=== PATIENT | female | born 1950 | race Caucasian/White ===

== ENCOUNTER 2016-12-07 17:53 | Inpatient (IN) | payer MEDICARE, BC ==
[~2016-12-07] VITALS: Ht 157.5 cm; Wt 55.9 kg
--- NOTE | ~2016-12-07 | CON ---
PATIENT'S NAME: MACEY CARPIO [facility] AGE: 66 Y [address] ROOM: [address] [address] LOCATION: GPCU ADMIT DATE: 12/07/2016 Consultation DISCHARGE DATE: FAMILY PHYSICIAN: Tanvi Freeman MD ATTENDING PHYSICIAN: Tanvi Freeman DATE OF CONSULTATION: 12/12/2016 REFERRING PHYSICIAN: Shawn Vera MD PRIMARY PHYSICIAN: Tanvi Freeman MD HISTORY OF PRESENT ILLNESS: The patient is a 66-year-old female, who has been not feeling well for the past month. She has been having a headache, running low-grade fevers, mild nausea since the beginning of November. She eventually did go in to see Dr. Freeman on 12/08, and routine evaluation did not find any abnormalities on 12/07. On 12/08, the patient went to the emergency room because of lethargy, weakness, nausea, decreased p.o. intake. In the emergency room, she was found to have a calcium of greater than 15, BUN of 32, creatinine of 1.7. Sodium 138, potassium was 3.4, globulin was elevated at 5.2, alkaline phosphatase is normal at 77. AST mildly elevated at 117. ALT mildly elevated at 97. Amylase elevated at 196 and lipase was 2060. CRP was mildly elevated at 5, TSH 1.9. Pro-BMP was 550. The patient was admitted to the hospital for acute pancreatitis. She was given IV hydration for her hypercalcemia. On 12/08, they did check ionized calcium and it was 8.66. With her serum calcium was 14.2 in the morning and later in the afternoon, it was 13.6. With continued IV hydration on 12/10, her calcium came down to 10.7, however, she was having increasing problems with shortness of breath and fluid retention, and the IV fluids were stopped. On 12/10, at 3 p.m., her calcium was up at 11.9, and on 12/11, it was up at 13.7, and IV hydration was started again. This morning, on 12/12, her calcium level was down to 12.2. The patient says that she has been feeling much better since she has been in. She did have approximately about a 10-pound weight loss in the past month. She was recently started on methotrexate and folic acid approximately six weeks ago for rheumatoid arthritis mainly on her MCP joint on her left hand. Her last dose of that was on November 26. Her poultry farm worker told her to hold her most the dose that was due on the 03 of December. Prior to that, she was on Plaquenil for approximately one year for her rheumatoid arthritis. She said that her rheumatoid arthritis main side symptom is swelling in her MCP joints bilaterally, but mainly on the left. On the day of admission, the patient said her temperature was up to 102. PATIENT'S NAME: MACEY CARPIO [facility] AGE: 66 Y [address] ROOM: [place] [address] LOCATION: GPCU ADMIT DATE: 12/07/2016 Consultation DISCHARGE DATE: FAMILY PHYSICIAN: Tanvi Freeman MD ATTENDING PHYSICIAN: Tanvi Freeman PAST MEDICAL HISTORY: Rheumatoid arthritis and she did have some leg pains likely just from work positioning and she is on gabapentin for that. MEDICATIONS: 1. Tylenol. 2. Singulair. 3. Estrogen. 4. Biotin. 5. Vitamin D 2000 international units a day. 6. Jovita. 7. Flonase. 8. Gabapentin 300 mg at bedtime. SOCIAL HISTORY: The patient is . [place] outside of town. She manages [employer]. She has one daughter, who lives in [place]. She drinks very occasionally. She is a nonsmoker. FAMILY HISTORY: Noncontributory. REVIEW OF SYSTEMS: As per HPI except she was having little problems with some constipation and her appetite has been fairly poor, but is a little bit better since she has been in the hospital. Otherwise, her 12-point review of systems is unremarkable. PHYSICAL EXAMINATION: VITAL SIGNS: Temperature is 98.2, pulse is 106, respirations 18, blood pressure is 117/73, sats 93% on room air. Her height is 5 feet and 2 inches, weight is 122 pounds. GENERAL: The patient is a very pleasant, alert, oriented female, who is in no distress. HEENT: No scleral icterus present. Extraocular muscles appear to be intact. Pupils appear to be equal. NECK: Supple without adenopathy or mass. Trachea is in the midline. HEART: Regular without murmur, S3, or S4. LUNGS: She has fine crackles bibasilar, but otherwise are clear. ABDOMEN: Bowel sounds are present, soft, and nontender. No organomegaly, masses, or tenderness are palpable. EXTREMITIES: She has no inguinal adenopathy or peripheral edema. SKIN: Shows no skin rash, petechia, or ecchymosis. MUSCULOSKELETAL: She does have a little bit of joint deformity in her MCP on her left hand, but is fairly mild, otherwise no significant joint PATIENT'S NAME: MACEY CARPIO [facility] AGE: 66 Y [address] ROOM: [place] [address] LOCATION: GPCU ADMIT DATE: 12/07/2016 Consultation DISCHARGE DATE: FAMILY PHYSICIAN: Tanvi Freeman MD ATTENDING PHYSICIAN: Tanvi Freeman. X-RAYS: CT of her sinuses was relatively unremarkable. May be question of sinusitis, but there were no fluid levels in her sinuses. CT of her abdomen showed mild pancreatitis and some ground-glass appearance in her bibasilar lungs. OTHER LABS: On 12/07, her BUN was 32 and her creatinine was 1.7 and today, her BUN was 24 and creatinine was 1.6. Calcium back up to 12.2, globulin was back up at 5.1, with an albumin of 2.6. Liver tests were normal. Amylase is still elevated at 106 and lipase is still elevated at 954. IMPRESSION: 1. Hypercalcemia with a normal PTH on 12/08 and a normal vitamin D25-OH. 2. Mild pancreatitis likely secondary to hypercalcemia. 3. Rheumatoid arthritis, seems to be fairly mild and recent on diagnosis. RECOMMENDATIONS: I talked with the patient and her daughter and her about the differential diagnosis of hypercalcemia, malignancy, sarcoidosis, vitamin D intoxication can all increase the calcium, however, this seems to be a fairly recent rapid onset of hypercalcemia. There is no evidence of sarcoid on CT scan or no evidence of other malignancies such as renal cell cancer on her CT scan. Pheochromocytoma is in the differential, however, so is multiple myeloma. With her total globulin elevated, that is a suggestion she could have multiple myeloma. I am waiting for serum protein electrophoresis to come back. We will go ahead and add quantitative immunoglobulins, serum free light chains, as well as beta- 2 microglobulin. We will check ionized calcium from this morning's lab. We will give her Zometa 4 mg IV today and see if that brings her calcium down. Readily, I did talk with her about further evaluation as an outpatient. Some of these tests will likely take several days to come back. However, I did tell her that I think she should have a bone marrow biopsy just to exclude multiple myeloma even if her protein levels come back unremarkable. We can do that here in the hospital on Tuesday or we can do it as an outpatient some time this next week. PATIENT'S NAME: MACEY CARPIO [facility] AGE: 66 Y [address] ROOM: [place] [address] [facility] ADMIT DATE: 12/07/2016 Consultation DISCHARGE DATE: FAMILY PHYSICIAN: Tanvi Freeman MD ATTENDING PHYSICIAN: Tanvi Freeman MD CML/modl /[id number] d: t: 12/13/16 0849, CONSULTATION REPORT
--- NOTE | ~2016-12-07 | CON ---
PATIENT'S NAME: MACEY CARPIO [facility] AGE: 66 Y [address] ROOM: [place] [id number] LOCATION: GPCU ADMIT DATE: 12/07/2016 Consultation DISCHARGE DATE: FAMILY PHYSICIAN: Tanvi Freeman MD ATTENDING PHYSICIAN: Tanvi Freeman DATE OF CONSULTATION: 12/11/2016 REFERRING PHYSICIAN: Shawn Vera MD CHIEF COMPLAINT: General feeling of ill being as well as fatigue, tiredness. She also had high amylase and hypercalcemia. We have been consulted for hypercalcemia for acute pancreatitis. HISTORY OF PRESENT ILLNESS: The patient is a pleasant 66-year-old white female who states for the last almost a month, has not been feeling well. She feels tired and fatigued. She was also somewhat unstable. She was evaluated by her primary care provider. She was found to have hypercalcemia and her medications including methotrexate was discontinued by the opto mechanical engineer. She also has some other abnormal labs which are unclear. She was ultimately not feeling well and would get very easily fatigued and unable to walk even 20 steps. She then was finally brought into hospital. She was found to have severe hypercalcemia. In addition to this, she was also found to have high amylase and lipase levels; we have been consulted for that. The patient has a longstanding history of rheumatoid arthritis. This has been pretty well managed by her opto mechanical engineer with methotrexate. She takes it weekly. PAST MEDICAL HISTORY: ALLERGIES: ENVIRONMENT. CURRENT MEDICATIONS: Include, 1. Gabapentin. 2. Montelukast. 3. Estrogen. 4. Biotin. 5. Vitamin D3. 6. Jovita. 7. Flonase. 8. Methotrexate, recently stopped. PATIENT'S NAME: MACEY CARPIO [facility] AGE: 66 Y [address] ROOM: [address] [place], [place] [address] LOCATION: GPCU ADMIT DATE: 12/07/2016 Consultation DISCHARGE DATE: FAMILY PHYSICIAN: Tanvi Freeman MD ATTENDING PHYSICIAN: Tanvi Freeman SOCIAL HISTORY: She takes occasional alcohol and caffeine. No substance abuse. She is a former smoker. FAMILY HISTORY: Significant for mother with arthritis and hypertension. Father had myocardial infarction. PAST SURGICAL HISTORY: Negative. PAST MEDICAL HISTORY: Is only significant for rheumatoid arthritis. REVIEW OF SYSTEMS: A detailed 10-point review of system was done. Found to be negative other than what is mentioned in the history of present illness and past medical history. She does complain of mild shortness of breath. She has been having significant constitutional symptoms as above. PHYSICAL EXAMINATION: GENERAL: Today, she is alert and awake. Appears to be in acute distress. VITAL SIGNS: She is afebrile. Pulse in the 80s, respiratory rate 18, blood pressure 118/64 and O2 saturation of 94% on 1 liter nasal cannula. HEENT: Reveals no pallor, no icterus. Head, ENT, oral cavity are normal. Nasal passages are clear. NECK: Supple. No masses are felt. No thyromegaly is felt. CARDIOVASCULAR: S1 and S2. Peripheral pulses are palpable and normal. CHEST: Bilateral coarse creps. No wheezing. No rhonchi. ABDOMEN: Soft and nontender. I do not feel any masses. MUSCULOSKELETAL: There are minimal changes of rheumatoid arthritis. No acute changes are seen. NEUROLOGICAL: Grossly nonfocal. LABORATORY DATA: CT thorax was done that shows worsening ground-glass opacities throughout both lower lobes with lesser changes in the right middle lobe. Complete metabolic screen shows sodium 142, potassium 3.7, chloride is 106, bicarb is 29, calcium 13.7, BUN 18, creatinine 1.4 which is high, total bilirubin 0.4, ALT of 44, AST 33, alk phos of 60, amylase of 87, lipase of 564. WBCs 8.6, hemoglobin 10 and hematocrit 30.1, platelet count 305. She had an abdominal ultrasound done and that did not show any cholelithiasis. Mild common duct dilatation extending to the level of pancreas. CT of the PATIENT'S NAME: MACEY CARPIO [facility] AGE: 66 Y [address] ROOM: [place] [address] [facility] ADMIT DATE: 12/07/2016 Consultation DISCHARGE DATE: FAMILY PHYSICIAN: Tanvi Freeman MD ATTENDING PHYSICIAN: Tanvi Freeman abdomen was also done showed mild pancreatitis, no fluid collection. Blood cultures have been negative to date. IMPRESSION: The patient with a history of hypercalcemia. The etiology is not clear. I wonder if this is the cause of vitamin D toxicity. She has a mild pancreatitis which is painless. I wonder if this is related to hypercalcemia. I do not think any GI intervention is needed at this time. She has a minimally dilated common bile duct and that will have to be followed. However, she has normal LFTs. We will recommend advancing her diet and correction of hypercalcemia. She was discussed with Dr. Freeman. She is going to work her up with protein electrophoresis. The findings and the plan were discussed with the patient. All questions were answered. We will continue to follow this patient and provide any further input if needed. VALENTINEF MD RADHAMES PLEITEZ/esa /[id number] d: 12/11/161922 t: 12/12/16 1341, CONSULTATION REPORT
--- NOTE | ~2016-12-07 | HP ---
PATIENT'S NAME: MACEY CARPIO [facility] AGE: 66 Y [address] ROOM: [place] [address] LOCATION: [facility] ADMIT DATE: 12/07/2016 History & Physical DISCHARGE DATE: FAMILY PHYSICIAN: PHYSICIAN, UNKNOWN ATTENDING PHYSICIAN: Tanvi Freeman DATE OF SERVICE: CHIEF COMPLAINT: Pancreatitis, hypercalcemia, and headache. HISTORY OF PRESENT ILLNESS: The patient is a 66-year-old female whom the family brought into the emergency room today with about almost a month long history of headache and not feeling well. Has had vomiting a couple of times in the last couple of days and low- grade fevers. Her equilibrium has been off. Really has not had much for intake over the last 24 hours. Does complain of heartburn when eating. She does have known rheumatoid arthritis and does see Rheumatology. Around the 15th of the month, her methotrexate and folic acid were discontinued due to some abnormal labs that were done per Dr. Freeman, the patient is unaware of what labs are abnormal. PAST MEDICAL HISTORY: Significant for rheumatoid arthritis involving both hands and positive rheumatoid factor. PREVIOUS SURGERY HISTORY: Negative. CURRENT MEDICATIONS: 1. Tylenol p.r.n. 2. Singulair 10 mg daily. 3. Estrogen dose unknown. 4. Biotin 5000 mg daily. 5. Vitamin D3 2000 International Units daily. 6. Jovita-D. 7. Flonase. 8. Gabapentin 300 at bedtime. 9. Methotrexate, recently stopped. ALLERGIES: THE PATIENT HAS NO KNOWN DRUG ALLERGIES. SOCIAL HISTORY: The patient occasionally uses alcohol as well as caffeine. No substance PATIENT'S NAME: MACEY CARPIO [facility] AGE: 66 Y [address] ROOM: [place] [address] LOCATION: [facility] ADMIT DATE: 12/07/2016 History & Physical DISCHARGE DATE: FAMILY PHYSICIAN: PHYSICIAN, UNKNOWN ATTENDING PHYSICIAN: Tanvi Freeman abuse. She was a former smoker. FAMILY HISTORY: Mother with arthritis, mother with hypertension, father with myocardial infarction. REVIEW OF SYSTEMS: GENERAL: No obvious weight gain or weight loss. HEENT: Has had the off-balance feeling as well as headache. CARDIOVASCULAR: No chest pain. No palpitations. PULMONARY: No shortness of breath. No cough. GI: Does have nauseousness as well as recent vomiting. Really no significant pain. : Negative. MUSCULOSKELETAL: Positive rheumatoid arthritis. PHYSICAL EXAMINATION: VITAL SIGNS: Blood pressure 145/75; O2 saturation was initially 85% on room air, was on 2 L and is now in the low 90s; temperature 98.2; and heart rate of 97. GENERAL: This is an alert, very pleasant female, in no acute distress. HEENT: Stable. Mouth: Moist mucous membranes. Lips are somewhat dry. NECK: Supple with no lymphadenopathy. No obvious thyromegaly. HEART: Regular rate and rhythm without a murmur heard. LUNGS: Clear to auscultation bilaterally. ABDOMEN: Has positive bowel sounds. Soft and is really nontender. : Not done. EXTREMITIES: No clubbing, cyanosis, or edema. Does have some arthritic changes as well as some clubbing in her fingernails. LABORATORY DATA: CT scan of her head was done actually earlier today, which does show some ethmoid sinusitis, nasal septum deviation, otherwise okay. ABGs; pH is 7.49, PO2 35, bicarb 33.5, lactate 1.3. Chest x-ray is normal. Head CT was negative. Procalcitonin 0.49. CBC: White count of 13.4, hemoglobin 12.5, platelets 428. CMS: Glucose of 99, potassium 3.4, calcium greater than 15, creatinine 1.7, and BUN of 32. ALT 97, AST 119, GFR low at 31. Amylase 196, lipase 2165. Cardiac enzymes negative. CRP of 5. Thyroid normal. ProBNP of 515. UA was negative. ASSESSMENT: 1. Pancreatitis, question if having a whole lot of symptoms from this. 2. Hypercalcemia. We will hydrate tonight. We will recheck calcium level and parathyroid in the morning. 3. Rheumatoid arthritis, stable. PATIENT'S NAME: MACEY CARPIO [facility] AGE: 66 Y [address] ROOM: [address] [address] LOCATION: [facility] ADMIT DATE: 12/07/2016 History & Physical DISCHARGE DATE: FAMILY PHYSICIAN: PHYSICIAN, UNKNOWN ATTENDING PHYSICIAN: Tanvi Freeman 4. Headache. Recent CT scan showed sinusitis. We will treat with antibiotics. Question if this is related to her hypercalcemia as well. Dr. Freeman will resume care in the morning. Again, we will repeat labs in the morning and re-evaluate at that time. MD SHANKAR ROMO/esa /[id number] D: [id number] T: [id number] HISTORY & PHYSICAL
--- NOTE | ~2016-12-07 | ER ---
PATIENT'S NAME: MACEY CARPIO [facility] AGE: 66 Y [address] ROOM: [address] [address] [place] [facility] DATE: 12/07/2016 ER/Outpatient Report DISCHARGE DATE: FAMILY PHYSICIAN: PHYSICIAN, UNKNOWN ATTENDING PHYSICIAN: Tanvi Freeman Admission date and time are documented in the medical record. I saw the patient at 1830 hours. CHIEF COMPLAINT: Intermittent fever, body aches, decreased appetite, lethargy, no energy. She has generalized weakness with near syncope. HISTORY OF PRESENT ILLNESS: This patient is a 66-year-old female who has been ill since November 08. She has had intermittent fevers up to 102.5. She has no energy and feels lethargic with generalized weakness. She just does not feel like eating or drinking. Drinking causes her nausea and anything she eats as far solid foods gives her acid reflux. She has lost 7 pounds over the past month. She has generalized aches and pains, worse in the lower back. Some exertional shortness of breath and when she is up and about gets a little bit confused and disoriented at times. Has had several clinic visits. She has had pretty much negative workups in the clinic according to her. Brought to the emergency room by family members for evaluation. As stated above, her temperature has been up to 102.5, the temperature was 98 too here in the emergency department with the temporal scanner. She was low on her O2 sats at 85% on room air. Pulse, respiratory rate, and blood pressures were stable. No real chest pain. No abdominal pain. Some nausea, but no vomiting or diarrhea. No urinary frequency, urgency, or dysuria. No skin eruptions or rash. Does have rheumatoid arthritis that affects some of her joints especially her hands. Little lightheaded, dizzy with near syncope. No fall or trauma. Kind of having a generalized headache. No eyes, ears, nose, throat, neck, or spine pain other than the generalized achiness. No history of neuro changes, psych issues, or endocrine problems. HOME MEDICATIONS: See attached medication list. ALLERGIES: NONE. SOCIAL HISTORY: Nonsmoker, nondrinker. SIGNIFICANT PAST MEDICAL HISTORY: PATIENT'S NAME: MACEY CARPIO [facility] AGE: 66 Y [address] ROOM: [address] [address] [place] [facility] [place]: 12/07/2016 ER/Outpatient Report DISCHARGE DATE: FAMILY PHYSICIAN: PHYSICIAN, UNKNOWN ATTENDING PHYSICIAN: Tanvi Freeman tobacco abuse, rheumatoid arthritis, and seasonal allergies. OPERATIONS: None. REVIEW OF SYSTEMS: All systems reviewed by me are negative with the exception of those discussed in the history of present illness. PHYSICAL EXAMINATION: VITAL SIGNS: Temperature 98.2, pulse 98, regular, respirations 16, blood pressure 114/68, O2 sat on room air is 85%, the patient is 95% O2 sat on 2 L of oxygen per nasal cannula. HEAD: Normocephalic. EYES: Extraocular muscles intact. PERRL. EARS: Clear TMs bilaterally. NOSE: Clear. THROAT: Clear. Mucous membranes dry. NECK: No nuchal rigidity. No thyromegaly or cervical adenopathy. No tenderness. SPINE: Nontender. No deformity. LUNGS: Clear. Good airflow. No rales, rhonchi, or wheezes. HEART: Regular. Pulses are palpable. No chest wall or ribcage pain to palpation. ABDOMEN: Soft, nondistended, nontender. Active bowel tones. No organomegaly or abnormal mass palpable. No CVA tenderness. EXTREMITIES: No peripheral edema, cyanosis, or deformity. NEUROVASCULAR: Intact. SKIN: Clear. No skin eruptions or rash. IMAGING DATA: EKG showed sinus rhythm, no acute ST-elevation, ischemic change, or arrhythmia. CT scan of the head showed no intracranial bleed, midline shift, mass effect, or skull fracture. CT scan of the abdomen and pelvis showed some inflammatory changes around the head of the pancreas suggestive of acute pancreatitis. CT scan is read by Radiology, see dictated transcribed report. LABORATORY DATA: White count is 13,400, 62 segs, 28 lymphs, 9 monos, 1 baso, hemoglobin is 12.5 with hematocrit 37.4, and platelet count is 428,000, sed rate is elevated 98. PTT was 22, pro-time is 10.5 with an INR 1.0. CMS was normal except for a slight low potassium 3.4, elevated calcium greater than 15, elevated BUN of 32, elevated creatinine of 1.7, low GFR of 31, elevated AST 119, elevated ALT at 97, magnesium normal at 1.8, CPK was normal at 38, [id number] cardiac enzymes were normal. Amylase was elevated at 196, lipase was elevated at PATIENT'S NAME: MACEY CARPIO [facility] AGE: 66 Y [address] ROOM: [address] [address] [place] [facility] [place]: 12/07/2016 ER/Outpatient Report DISCHARGE DATE: FAMILY PHYSICIAN: PHYSICIAN, UNKNOWN ATTENDING PHYSICIAN: Tanvi Freeman 2165, acetone level was elevated at 4.1. Urine showed 10 to 20 whites, rare rbcs, 2 to 5 epithelial cells, negative bacteria per high-powered field. Urine culture obtained, results pending. Blood cultures x2 obtained, results pending. Thyroid tests were normal. Pro-BNP was 515. Venous pH was elevated at 7.49. Lactate was 1.3. Procalcitonin was 0.49. EMERGENCY DEPARTMENT COURSE: I did start the patient IV normal saline, fluids, gave her 2 L down here in the emergency room and kept her rate at 150 mL an hour. IMPRESSION: 1. Acute pancreatitis with elevated lipase and changes of inflammatory type of the head of the pancreas on CT scan. 2. Hypercalcemia with a calcium level greater than 15. 3. Dehydration with elevated kidney enzymes, BUN at 32, creatinine 1.7. The patient may have some acute renal failure. Her GFR was 31. 4. Elevated pancreas enzymes, secondary to acute pancreatitis with elevated lipase above, amylase was 196, lipase was 2165. 5. History of rheumatoid arthritis, sedimentation rate was elevated at 98. PLAN: I did discuss this patient with Dr. Bhavesh Huddleston for Dr. Freeman. I will admit the patient to [facility] for further evaluation and treatment. Discussion ensued with the patient concerning my findings and recommendations, she understands. MD GERALDINE DOBBS/modl /[id number] d: 12/08/16 0357 t: 12/10/16 1829, OUTPATIENT REPORT
--- NOTE | ~2016-12-07 | DS ---
PATIENT'S NAME: MACEY CARPIO [facility] AGE: 66 Y [address] ROOM: [address] [address] LOCATION: GPCU ADMIT DATE: 12/07/2016 Discharge Summary DISCHARGE DATE: 12/14/2016 FAMILY PHYSICIAN: Tanvi Freeman MD ATTENDING PHYSICIAN: Tanvi Freeman PRINCIPAL DIAGNOSES: 1. Severe hypercalcemia. 2. Pancreatitis due to severe hypercalcemia. 3. Acute kidney injury due to severe hypercalcemia. 4. Acute hypoxic respiratory failure due to fluid resuscitation, resolved. 5. Hypernatremia, resolved. 6. Hypokalemia, resolved. 7. Rheumatoid arthritis. 8. Gastroesophageal reflux disease. SUMMARY: Macey is a 66-year-old female, who was admitted on 12/07/2016 with a calcium level over 15. She also had pancreatitis. She also had acute renal failure. She was hydrated aggressively. Her electrolytes were followed very closely. She did require some supplemental oxygen due to hypoxia and then did require some diuresis. Her parathyroid hormone level was normal. Workup ensued as well as treatment of hypercalcemia. IV fluids were adjusted based on electrolyte levels. She was initially covered with antibiotics, and those were discontinued as no source of infection was noted. She did have some problems with GERD and was given pantoprazole. She improved significantly, was able to start eating and drinking. IV fluids were decreased, and then her calcium started increasing once again. Consulted GI. They recommended just treatment of the calcium as far as pancreatitis and consulted Dr. Shanda Hercules. She did receive IV Zometa for hypercalcemia treatment, and bone marrow biopsy was performed on 12/14/2016, which is pending. Other workup included a normal vitamin D level, a serum protein electrophoresis, which is pending. Her LDH was normal. Her sedimentation rate was markedly elevated at 120. Cultures for infection were all negative. CT of the chest showed ground-glass appearance of the lungs, but no evidence of any mass. CT of the abdomen showed pancreatitis. Ultrasound showed no stones, gallbladder thickening, or duct dilation. At this time, she is feeling better, able to eat and drink. She is still pretty weak, but can go short distances. At this time, she is improved, and we are going to dismiss her to home. DISPOSITION: Macey is dismissed on 12/14/2016 in improved condition. DISMISSAL MEDICATIONS: 1. Fluticasone one squirt each naris daily. 2. Vitamin D3 2000 International Units daily. PATIENT'S NAME: MACEY CARPIO [facility] AGE: 66 Y [address] ROOM: [place] [address] LOCATION: GPCU ADMIT DATE: 12/07/2016 Discharge Summary DISCHARGE DATE: 12/14/2016 FAMILY PHYSICIAN: Tanvi Freeman MD ATTENDING PHYSICIAN: Tanvi Freeman 3. Pantoprazole 40 mg daily for ulcer prevention for the next 30 days and then just p.r.n. 4. Tylenol 650 q.4 hours p.r.n. 5. Neurontin 300 mg at h.s. 6. Singulair 10 mg daily. 7. Biotin 500 mcg daily. 8. Jovita-D 12 hour one daily. DISCHARGE INSTRUCTIONS: We will have her hold off on all of her rheumatoid medications until she sees Dr. Hercules for biopsy results and plan. She will see Dr. Hercules on 12/20/2016 and follow up with me on 12/22/2016. I will plan to get a chemistry panel, amylase, and lipase at that time. She will also receive Zometa IV on a monthly basis for treatment of hypercalcemia and prevention of complications regardless of the cause. Prognosis is fair. At this time, she is not ready to go back to work. I told her it would be at least 2 more weeks until she gains the energy to do that, and so we will just see how she does over time. MD SIERRA MINERE/modl /[id number] d: 12/15/16 0235 t: 12/17/16 0835, DISCHARGE SUMMARY
--- NOTE | ~2016-12-07 | ECHO ---
Transthoracic Echocardiography Report (TTE) Demographics Patient Name MACEY CARPIO Date of Study 12/08/2016 K Patient Number [id number] Visit Number [id number] Date of 1950 Room Number G3200 Gender Female Number Age 66 year(s) Referring Pete Thibodeaux MD Chief Construction Inspector Dc Jean RDCS, Physician RVT, RDMS, PHYTOPATHOLOGY TEACHER Physician Interpreting Ynes [place] Bankruptcy Legal Assistant Physician Andriy Pulido MD Supervising Ordering Pete Thibodeaux MD, MD/MLP Physician Nurse Stress Contact Center Team Lead Conclusions Summary The estimated left ventricular ejection fraction is 65%. Normal biventricular function. Normal age related valvular changes. Mild mitral and tricuspid insufficiency. Normal pulmonary (RVSP) pressures. Procedure Type of Study TTE procedure:2D Echocardiogram, M-Mode, Doppler , Color Doppler. Procedure Date Date: 12/08/2016 Start: 08:35 AM Study Location: Inpatient Portable Technical Quality: Adequate visualization Indications:Atypical Chest Pain. Additional Indications:Hypercalcemia Appropriate Use Criteria: 9 Patient Status: STAT Rhythm: NSR HR: 79 bpm BP: 121/68 mmHg M-Mode/2D Measurements LV Diastolic Dimension: 3.64 cm LV Systolic Dimension: 1.97 cm LV Septum Diastolic: 1.01 cm LV PW Diastolic: 0.81 cm AO Root Dimension: 2.3 cm Cardiac Output: 5.69 l/min AV Cusp Separation: 1.4 cm RV Diastolic Dimension: 2.79 cm LA volume: 27 ml IVC Inspiration: 0.8 cm LVOT: 1.8 cm RV Base: 3.2 cm LVOT VTI: 28.3 cm RV Mid: 2.4 cm LV Stroke volume: 71.98 ml TAPSE: 1.9 cm TDI-S': 14 cm/s Doppler Measurements AV Peak Velocity: 1.21 m/s MV Peak E-Wave: 0.8 m/s AV Peak Gradient: 5.86 mmHg MV Peak A-Wave: 0.99 m/s AV Mean Gradient: 3 mmHg MV E/A Ratio: 0.8 LVOT Peak Velocity: 1.21 m/s MV P1/2t: 54 msec TR Gradient:25.81 mmHg PV Peak Velocity: 0.83 m/s Estimated RAP:3 mmHg PV Peak Gradient: 2.72 mmHg Estimated RVSP: 29 mmHg Estimated PASP: 28.81 mmHg E' Septal Velocity: 0.06 m/s A' Septal Velocity: 0.12 m/s E' Lateral Velocity: 0.08 m/s A' Lateral Velocity: 0.11 m/s Findings Left Ventricle Normal left ventricular size, wall thickness, and systolic function. Diastolic assessment reveals Grade I diastolic dysfunction. Right Ventricle Normal right ventricle structure and function. Left Atrium Normal left atrial size. Right Atrium Normal right atrial size. Mitral Valve Mild mitral annular calcification. Mild to moderate calcification of the mitral valve. Mild mitral regurgitation by color Doppler. Aortic Valve The aortic valve is mildly sclerotic. Tricuspid Valve Normal tricuspid valve structure and function. Mild tricuspid regurgitation by color Doppler. Pulmonic Valve Normal pulmonic valve structure and function. Pericardial Effusion No evidence of pericardial effusion. Miscellaneous There is moderate plaque seen in the ascending aorta. Pleural Effusion No evidence of pleural effusion. Signature dtt: Richard Ashraf dtd: 12/08/16 0835 Physician Self Edit
[2016-12-07 19:13] LABS: BICARBONATE 33.5 mmol/L (18.0-23.0); LACTATE 1.3 mEq/L (0.50-1.60); PCO2 44 mmHg (35-45)
[2016-12-07 19:14] LABS: PO2 35 mmHg (80-90)
[2016-12-07 19:15] LABS: BASOPHIL # 0.1 K/uL (0.0-0.2); BASOPHIL % 0.6 %; EOSINOPHIL # 0.1 K/uL (0.0-0.5); EOSINOPHIL % 0.4 %; HEMATOCRIT 37.4 % (33.0-46.0); HEMOGLOBIN 12.5 g/dL (10.0-15.0); IMMATURE GRANULOCYTE # 0.1 K/uL (0.0-0.3); IMMATURE GRANULOCYTE % 0.5 %; LYMPHOCYTE # 3.8 K/uL (0.8-4.0); MCH 31.3 pg (27.0-34.0); MCHC 33.4 gm/dL (32.0-36.5); MCV 93.5 fl (83.0-98.0); MONOCYTE # 1.1 K/uL (0.0-1.0); MONOCYTE % 8.5 %; NEUTROPHIL # (ANC) 8.3 K/uL (1.8-7.8); NRBC % 0 /100WBC (0-0.00); PLATELET COUNT 428 K/uL (150-450); RDW-CV 14.2 % (11.9-14.6); WBC 13.4 K/uL (4.0-11.0)
[2016-12-07 19:22] LABS: PROTIME 10.5 SECONDS (9.8-11.4); PTT 22 SECONDS (25-32)
[2016-12-07 19:36] LABS: ALBUMIN 3.3 gm/dL (3.5-5.0); ALK PHOS 77 IU/L (33-138); ALT 97 IU/L (12-78); ANION GAP 10.4 (10.0-19.0); AST 119 IU/L (10-40); BLOOD UREA NITROGEN 32 mg/dL (6-24); CHLORIDE 101 mMol/L (96-110); CO2 30 mMol/L (22-32); CPK 38 IU/L (21-215); CREATININE 1.7 mg/dL (0.5-1.1); MAGNESIUM 1.8 mg/dL (1.8-2.6); POTASSIUM 3.4 mMol/L (3.7-5.1); SODIUM 138 mMol/L (135-145); TOTAL PROTEIN 8.5 g/dL (6.0-8.4)
[2016-12-07 20:22] LABS: CALCIUM > 15.0 mg/dL (8.5-10.5)
[2016-12-07 21:01] LABS: BILIRUBIN URINE NEGATIVE (NEGATIVE); BLOOD URINE NEGATIVE /UL (NEGATIVE); COLOR URINE YELLOW (YELLOW); GLUCOSE URINE NEGATIVE (NEGATIVE); KETONE URINE NEGATIVE (NEGATIVE); LEUKOCYTES URINE 25 /UL (NEGATIVE); NITRITE URINE NEGATIVE (NEGATIVE); PROTEIN URINE 15 mg/dL (NEGATIVE); SPEC GRAVITY URINE 1.015 (1.003-1.035); TURBIDITY URINE CLEAR (CLEAR); UROBILINOGEN URINE NORMAL (NORMAL)
[2016-12-07 21:10] LABS: BACTERIA URINE NEGATIVE (NEGATIVE); RBC URINE RARE #/HPF (NEGATIVE)
--- NOTE | 2016-12-08 04:13 | NUR ---
66 year old female admitted to floor at 2200 for acute pancreatitis, and acute renal failure with dehydration, and hypercalcemia. Hx. of RA, cataracts, and no surgery hx. Former smoker. Allergies to cats and dogs - noted in chart. Labs: Ca >15, AST 119, ALT 97, K+ 3.4, Cr 1.7, and amylase 196. Has been in/out of DR since 11/08. Pt. alert and oriented. VSS. 2-3L of O2. Pt. reports increased SOB last couple of days as well as dizziness upon standing, and headaches. Reports heartburn when eating. Running fevers at home - afebrile here. No energy and increased weakness over last couple of days as well. NPO status. Potassium Chloride x1 given. Telemetry - no calls. IV in R) AC - fluids running. IV Antibx. Tylenol given for headache around 0220. SBA. Pt. reports using furniture to walk - does not use walker/cane at home. Lives with in ranch style house. Daughter and at bedside. Cooperative and pleasant with cares.
[2016-12-08 05:50] LABS: HEMATOCRIT 29.8 % (33.0-46.0); HEMOGLOBIN 9.7 g/dL (10.0-15.0); MCH 31.3 pg (27.0-34.0); MCHC 32.6 gm/dL (32.0-36.5); MCV 96.1 fl (83.0-98.0); MPV 9.9 fl (9.4-12.4); PLATELET COUNT 302 K/uL (150-450); RDW-CV 14.2 % (11.9-14.6); WBC 9.4 K/uL (4.0-11.0)
[2016-12-08 06:06] LABS: ALBUMIN 2.3 gm/dL (3.5-5.0); ANION GAP 9.6 (10.0-19.0); CREATININE 1.5 mg/dL (0.5-1.1); POTASSIUM 3.6 mMol/L (3.7-5.1); TOTAL PROTEIN 6.3 g/dL (6.0-8.4)
[2016-12-08 06:08] LABS: CALCIUM 14.2 mg/dL (8.5-10.5); TOTAL BILIRUBIN 0.3 mg/dL (0.0-1.5)
[2016-12-08 06:10] LABS: ABSOLUTE NEUTROPHIL CT (ANC) 6.3 K/uL (1.8-7.8); BANDED NEUTROPHIL # 0.4 K/uL (0.0-0.1); BANDED NEUTROPHILS % 4 %; LYMPHOCYTE # 2.5 K/uL (0.8-4.0); LYMPHOCYTE % 27 %; MONOCYTE # 0.3 K/uL (0.0-1.0); SEGMENTED NEUTROPHIL # 5.9 K/uL (1.8-7.8); SEGMENTED NEUTROPHIL % 63 %
--- NOTE | 2016-12-08 10:30 | NUR ---
Gave report to Mariluz DE LEÓN on PCU at 1005.At 1030 pt.was transferred to room 6308 on PCU per bed accomp.by spouse,daughter,nurse,& TELEVISION EQUIPMENT OPERATOR.
[2016-12-08] MEDS ORDERED: NEURONTIN300 MG PO (11:35)
[2016-12-08] MEDS ORDERED: SINGULAIR10 MG PO (11:35)
[2016-12-08] MEDS ORDERED: ESTROVEN MAX400 MCG PO (11:36)
[2016-12-08] MEDS ORDERED: BIOTIN5000 MCG PO (11:36)
[2016-12-08] MEDS ORDERED: VITAMIN D-32000 UNI1 PO (11:37)
[2016-12-08] MEDS ORDERED: FLONASE 50 MCG/16 GM NOSE (11:37)
[2016-12-08] MEDS ORDERED: ALLEGRA-D 12 HR1 TAB PO (11:37)
[2016-12-08] MEDS ORDERED: TYLENOL EXTRA500 MG PO (11:38)
[2016-12-08] MEDS ORDERED: ARAVA10 MG PO (11:39)
--- NOTE | 2016-12-08 16:33 | NUR ---
Significant Event: A/O. VSS weaned to 2L/NC. SOB with activity. Denies pain, just feels "tired". No nausea. Ice chips otherwise NPO. ABD US negative. EF 60%. Calcium coming down last check at 1400 was 13.6. IVF at 200ml/HR. Crackles lupillo lobes, order for RSS. IS and FV initiated. Patient coughs frequently with deep breaths and IS. Denies productive cough. 800ml UOP since arrival to PCU at 1045. Goal for 100-200ml/hr per Dr Freeman. Family at bedside. Follow up: cont plan of care
[2016-12-09 04:00] LABS: HEMATOCRIT 26.2 % (33.0-46.0); HEMOGLOBIN 8.4 g/dL (10.0-15.0); MCH 31.3 pg (27.0-34.0); MCHC 32.1 gm/dL (32.0-36.5); MCV 97.8 fl (83.0-98.0); MPV 10.2 fl (9.4-12.4); PLATELET COUNT 280 K/uL (150-450); RBC 2.68 M/uL (3.50-5.50); RDW-CV 14.6 % (11.9-14.6); WBC 7.9 K/uL (4.0-11.0)
[2016-12-09 04:17] LABS: ALBUMIN 2.2 gm/dL (3.5-5.0); CREATININE 1.4 mg/dL (0.5-1.1); POTASSIUM 3.4 mMol/L (3.7-5.1); TOTAL PROTEIN 6.1 g/dL (6.0-8.4)
[2016-12-09 04:25] LABS: ANION GAP 11.4 (10.0-19.0); CALCIUM 11.4 mg/dL (8.5-10.5); TOTAL BILIRUBIN 0.2 mg/dL (0.0-1.5)
[2016-12-09 04:42] LABS: ABSOLUTE NEUTROPHIL CT (ANC) 3.8 K/uL (1.8-7.8); BANDED NEUTROPHIL # 0.1 K/uL (0.0-0.1); BANDED NEUTROPHILS % 1 %; LYMPHOCYTE # 3.1 K/uL (0.8-4.0); LYMPHOCYTE % 39 %; MONOCYTE # 0.8 K/uL (0.0-1.0); SEGMENTED NEUTROPHIL # 3.7 K/uL (1.8-7.8); SEGMENTED NEUTROPHIL % 47 %
--- NOTE | 2016-12-09 05:12 | NUR ---
Significant Event:A/Ox3. VSS. Oxygen demands increased through the night by last assessment increased from 3L to 5L and added humidity since patient was c/o dryness. Lung sounds still fine crackles. Notified RT for a treatment. Lungs got worse, notified and received orders to decrease IVF to 100ml/h and give 40mg IV Lasix. Patient continues to have great UOP. Calcium this morning 11.4. Follow up:Continue to monitor labs/respiratory status.
--- NOTE | 2016-12-09 11:38 | NUR ---
Introduced self and CM role to Kamilla, her Jose Daniel and daughter that were all at bedside. Kamilla tells me that she lives at home in [place] with her and it is her plan to return there upon dismissal. PCP is . She manages her own medications at baseline, uses a pill box and reports to me that she takes about 6 pills per day. Kamilla denies any need for HHC or DME upon dismissal at this time. Left my name on her whiteboard for any further questions that might come up. No other questions, needs or concerns. CM to continue to follow and assist. Plan home.
--- NOTE | 2016-12-09 15:49 | NUR ---
Significant Event: A/O. VSS weaned from 5L/NC to 1L/NC. Denies pain. Up with 1 assist, feels stronger today. Still somewhat SOB with activity but has improved since yesterday. Encourage PO intake and if 1500ml PO intake - may saline lock IV. Good UOP, over 3L out. Ca this AM 11.4. Follow up: cont plan of care
[2016-12-10 03:33] LABS: BASOPHIL # 0.1 K/uL (0.0-0.2); BASOPHIL % 0.6 %; EOSINOPHIL # 0.3 K/uL (0.0-0.5); EOSINOPHIL % 3.5 %; HEMOGLOBIN 8.7 g/dL (10.0-15.0); IMMATURE GRANULOCYTE % 0.4 %; LYMPHOCYTE % 36.9 %; MCH 31.5 pg (27.0-34.0); MCHC 33.5 gm/dL (32.0-36.5); MCV 94.2 fl (83.0-98.0); MONOCYTE # 0.9 K/uL (0.0-1.0); MONOCYTE % 11.1 %; MPV 10.1 fl (9.4-12.4); NEUTROPHIL # (ANC) 3.8 K/uL (1.8-7.8); NEUTROPHIL % 47.5 %; NRBC % 0 /100WBC (0-0.00); PLATELET COUNT 302 K/uL (150-450); RBC 2.76 M/uL (3.50-5.50); RDW-CV 14.6 % (11.9-14.6)
[2016-12-10 03:52] LABS: ALBUMIN 2.4 gm/dL (3.5-5.0); CALCIUM 10.7 mg/dL (8.5-10.5); CREATININE 1.3 mg/dL (0.5-1.1); TOTAL PROTEIN 6.5 g/dL (6.0-8.4)
[2016-12-10 03:53] LABS: ANION GAP 10.8 (10.0-19.0); POTASSIUM 2.8 mMol/L (3.7-5.1); TOTAL BILIRUBIN 0.3 mg/dL (0.0-1.5)
--- NOTE | 2016-12-10 07:26 | NUR ---
Significant Event: Patient alert and oriented x3. Vital signs stable. On 2-4L O2. Lung sounds coarse in bases, upper lobes vary. No complaints of pain. Up with stand-by assist to bathroom. Good uop. Potassium 2.8 this morning. IV replacement being given now per Dr. Johnson. Will recheck after IV infusion complete. Calm and cooperative with all cares. Follow up: Will continue to monitor labs and respiratory status.
--- NOTE | 2016-12-10 09:18 | NUR ---
A - NUTRITION F/U. K+ 2.8, GLU 84, BUN/RELAY DISPATCHER 17/1.3, ALB 2.4. DIET ADVANCED TO SOFT THIS AM. PT ON ENSURE CLEAR TID W/ MEALS. D - AT RISK W/ INADEQUATE ORAL INTAKE R/T NPO/CL DIET SINCE ADMIT AEB DIET ORDER. I - GOAL: 50-75% INTAKE BY DISMISSAL. M/E - WILL CHANGE ENSURE CLEAR AT BF TO ENSURE ENLIVE AND CONT TO MONITOR INTAKE. F/U IN 3-5 DAYS.
[2016-12-10 15:37] LABS: ANION GAP 10.2 (10.0-19.0); CREATININE 1.4 mg/dL (0.5-1.1); POTASSIUM 3.2 mMol/L (3.7-5.1)
[2016-12-10 15:40] LABS: CALCIUM 11.9 mg/dL (8.5-10.5)
--- NOTE | 2016-12-10 16:36 | NUR ---
Significant Event: ALERT& ORIENTED. VSS, AFEBRILE, DOWN TO 2L O2. GAVE IV LASIX, PO & IV POTASSIUM, K+ UP TO 3.2. STOPPED ABX. ADVANCED TO SOFT DIET, PT HAS HAD 3 LOOSE STOOLS. COMPLAINT OF HEARTBURN. ORDERS RECEIVED FOR PROTONIX AND CREON. Follow up: POTASSIUM, WEAN O2
[2016-12-11 04:40] LABS: BASOPHIL # 0.1 K/uL (0.0-0.2); BASOPHIL % 0.7 %; EOSINOPHIL # 0.3 K/uL (0.0-0.5); EOSINOPHIL % 3.3 %; HEMATOCRIT 30.1 % (33.0-46.0); IMMATURE GRANULOCYTE % 0.2 %; LYMPHOCYTE # 2.9 K/uL (0.8-4.0); LYMPHOCYTE % 34.1 %; MCH 31.5 pg (27.0-34.0); MCHC 33.2 gm/dL (32.0-36.5); MONOCYTE # 0.9 K/uL (0.0-1.0); MONOCYTE % 9.9 %; MPV 10.4 fl (9.4-12.4); NEUTROPHIL # (ANC) 4.4 K/uL (1.8-7.8); NEUTROPHIL % 51.8 %; NRBC % 0 /100WBC (0-0.00); PLATELET COUNT 305 K/uL (150-450); RBC 3.17 M/uL (3.50-5.50); RDW-CV 14.5 % (11.9-14.6); WBC 8.6 K/uL (4.0-11.0)
--- NOTE | 2016-12-11 04:48 | NUR ---
Significant Event: Patient alert and oriented x3. HR 70s-110s. All other vital signs stable. On 2-3L O2. Lung sounds clear/diminished throughout. No complaints of pain. Up with stand-by assist to bathroom. Good uop-over 1L out. Difficulties falling asleep this shift. 1 time dose Ambian given per Dr. Cagle with relief to patient. Calm and cooperative with all cares. Follow up: Monitor labs and respiratory status.
[2016-12-11 04:58] LABS: ALBUMIN 2.5 gm/dL (3.5-5.0); ANION GAP 10.7 (10.0-19.0); CREATININE 1.4 mg/dL (0.5-1.1); POTASSIUM 3.7 mMol/L (3.7-5.1); TOTAL PROTEIN 7.5 g/dL (6.0-8.4)
[2016-12-11 05:17] LABS: CALCIUM 13.7 mg/dL (8.5-10.5); TOTAL BILIRUBIN 0.4 mg/dL (0.0-1.5)
--- NOTE | 2016-12-11 07:13 | NUR ---
RN noticed small dish of white, round tabs. Assumed they were mints. Was called with critical calcium lab in the morning. RN remembered patient was started on PRN tums. Checked to see how many doses patient received. Saw none charted. Asked patient what was in the dish at bedside. Patient responded Tums. Asked how many patient took since 1899. Patient stated "2-3 since supper." RN took Tums dish away from patient. Called pharmacy to ask about Tums and increased Calcium. Pharmacy stated that with poor kidney function, Tums can significantly increase calcium levels. Also noted that there are two different strengths of Tums. Not known which strength patient had at bedside or how many patient took. Patient was notified of information from pharmacy and dangers of taking too many. Patient agreed to not take Tums from own supply and not let family bring in any. Will report off to day shift nurse to notify MD. Tums PRN still on patient's JUN.
--- NOTE | 2016-12-11 09:28 | NUR ---
PT DOES NOT LIKE THE ENSURE CLEAR; WILL D/C PER PT REQUEST. WILL INCREASE OSWALD. ENSURE ENLIVE FROM QD TO BID.
--- NOTE | 2016-12-11 17:03 | NUR ---
Significant Event: A/OX3, VSS ON 1L PER NC, SATS >90%. PT. GETS UP SBA TO BATHROOM, SHOWERED TODAY. NO PAIN. NEW IV STARTED TO LEFT POST. FOREARM, HAS D5 1/2 NS WITH 20meq OF KCL @ 125ml/HR. 20MG IV LASIX BID STARTED TODAY. DR. PEOPLES CONSULTED & SAID TO CONTINUE WITH CURRENT PLAN. VITAMIN D LABS DRAWN TODAY. FAMILY HERE. PT. NOT TO HAVE ANY TUMS, MAALOX STARTED INSTEAD FOR HEARTBURN. Follow up: CONTINUE WITH POC.
--- NOTE | 2016-12-12 04:25 | NUR ---
Pt a/o. VSS on RA, afebrile. Pt was titrated off of o2 on last assessment. Con't on D5 1/2 ns with KCL at 125ml/hr. SBA. Denies pain. Dulce Maria ordered PRN HS x3days. Dr. Freeman will need to address for con't orders if patient still here on tuesday. denies heart burn this shift. Plan: cont current poc
[2016-12-12 04:57] LABS: BASOPHIL # 0.1 K/uL (0.0-0.2); BASOPHIL % 0.7 %; EOSINOPHIL # 0.3 K/uL (0.0-0.5); EOSINOPHIL % 2.7 %; HEMATOCRIT 31.2 % (33.0-46.0); HEMOGLOBIN 10.2 g/dL (10.0-15.0); IMMATURE GRANULOCYTE % 0.3 %; LYMPHOCYTE # 2.5 K/uL (0.8-4.0); LYMPHOCYTE % 27.8 %; MCHC 32.7 gm/dL (32.0-36.5); MCV 94.8 fl (83.0-98.0); MONOCYTE # 0.9 K/uL (0.0-1.0); MONOCYTE % 10.3 %; MPV 10.2 fl (9.4-12.4); NEUTROPHIL # (ANC) 5.3 K/uL (1.8-7.8); NEUTROPHIL % 58.2 %; NRBC % 0 /100WBC (0-0.00); PLATELET COUNT 300 K/uL (150-450); RBC 3.29 M/uL (3.50-5.50); RDW-CV 14.4 % (11.9-14.6); WBC 9.1 K/uL (4.0-11.0)
[2016-12-12 05:15] LABS: ALBUMIN 2.6 gm/dL (3.5-5.0); ANION GAP 12.2 (10.0-19.0); CREATININE 1.6 mg/dL (0.5-1.1); POTASSIUM 4.2 mMol/L (3.7-5.1); TOTAL PROTEIN 7.7 g/dL (6.0-8.4)
[2016-12-12 05:16] LABS: CALCIUM 12.2 mg/dL (8.5-10.5); TOTAL BILIRUBIN 0.3 mg/dL (0.0-1.5)
--- NOTE | 2016-12-12 16:31 | NUR ---
Significant Event: A/OX3, VSS, O2 WEANED TO ROOM AIR WITH SATS >90%. TYLENOL GIVEN AT 1448 FOR COMPLAINTS OF A HEADACHE. UP SBA TO BATHROOM. SHOWERED TODAY. FAMILY HERE IN ROOM. ATE BITES OF MEALS. IVF CONTINUE 2 125ml/HR TO L)FA IV SITE. DR. NIXON CONSULTED TODAY, ORDERED SOME LABS NOW AND IN AM & 4mg OF ZOMETA IV X1 DOSE. WALKED SOME IN [place] TODAY WITH PT. STILL NEEDS A SPUTUM CULTURE. Follow up: CONTINUE WITH POC.
[2016-12-13 03:33] LABS: BASOPHIL # 0.1 K/uL (0.0-0.2); BASOPHIL % 0.7 %; EOSINOPHIL # 0.2 K/uL (0.0-0.5); EOSINOPHIL % 2.5 %; HEMATOCRIT 32.6 % (33.0-46.0); HEMOGLOBIN 10.9 g/dL (10.0-15.0); IMMATURE GRANULOCYTE % 0.2 %; LYMPHOCYTE # 2.9 K/uL (0.8-4.0); LYMPHOCYTE % 30.5 %; MCH 31.7 pg (27.0-34.0); MCHC 33.4 gm/dL (32.0-36.5); MCV 94.8 fl (83.0-98.0); MONOCYTE # 0.9 K/uL (0.0-1.0); MPV 10.4 fl (9.4-12.4); NEUTROPHIL # (ANC) 5.4 K/uL (1.8-7.8); NEUTROPHIL % 57.1 %; NRBC % 0 /100WBC (0-0.00); PLATELET COUNT 311 K/uL (150-450); RBC 3.44 M/uL (3.50-5.50); WBC 9.5 K/uL (4.0-11.0)
[2016-12-13 03:52] LABS: ALBUMIN 2.7 gm/dL (3.5-5.0); ANION GAP 9.7 (10.0-19.0); CREATININE 1.7 mg/dL (0.5-1.1); POTASSIUM 4.7 mMol/L (3.7-5.1); TOTAL BILIRUBIN 0.3 mg/dL (0.0-1.5); TOTAL PROTEIN 8.3 g/dL (6.0-8.4)
[2016-12-13 03:53] LABS: CALCIUM 11.7 mg/dL (8.5-10.5)
--- NOTE | 2016-12-13 04:26 | NUR ---
Pt a/o x4. vss on ra, afebrile. SBA/up adlib in room during day. D5 12 + kcl at 125ml/hr in LFA IV. NSR. denies pain/n/v/heart burn. PRN anhien given at hs. Plan: lots of special labs ordered by CA
--- NOTE | 2016-12-13 16:29 | NUR ---
Significant Event: A/O. VSS on RA. Denies pain. Up with help from spouse. Plan for bone marrow bx tomorrow with Dr Hercules, permits signed. Follow up: possible dismissal Tuesday or Tuesday.
--- NOTE | 2016-12-14 04:42 | NUR ---
pt a/o x4. vss on RA, afebrile. sba. d5 1/2 ns +20kcl at 125ml/hr to L wrist. denies pain/n/v/heartburn. Plan: bone marrow bx at 0740. consents are signed.
[2016-12-14 05:00] LABS: HEMATOCRIT 35.3 % (33.0-46.0); HEMOGLOBIN 11.4 g/dL (10.0-15.0); MCH 30.7 pg (27.0-34.0); MCHC 32.3 gm/dL (32.0-36.5); MCV 95.1 fl (83.0-98.0); MPV 10.4 fl (9.4-12.4); PLATELET COUNT 299 K/uL (150-450); RBC 3.71 M/uL (3.50-5.50); WBC 9.5 K/uL (4.0-11.0)
[2016-12-14 05:13] LABS: ALBUMIN 2.7 gm/dL (3.5-5.0); ANION GAP 11.6 (10.0-19.0); CALCIUM 10.6 mg/dL (8.5-10.5); CREATININE 1.6 mg/dL (0.5-1.1); POTASSIUM 4.6 mMol/L (3.7-5.1); TOTAL PROTEIN 8.5 g/dL (6.0-8.4)
[2016-12-14 05:14] LABS: TOTAL BILIRUBIN 0.4 mg/dL (0.0-1.5)
[2016-12-14 05:43] LABS: ABSOLUTE NEUTROPHIL CT (ANC) 6.2 K/uL (1.8-7.8); BANDED NEUTROPHIL # 0.2 K/uL (0.0-0.1); BANDED NEUTROPHILS % 2 %; LYMPHOCYTE % 21 %; SEGMENTED NEUTROPHIL % 63 %
[2016-12-14] MEDS ORDERED: PROTONIX40 MG PO (12:07)
== END 2016-12-14 15:00 | disposition disaster alternative care site (69) | DRG 438 ==
LOC: GMED 17:53 → GMSU 22:30 → GPCU 22:30
PROVIDERS: Emergency Medicine; Family Medicine; Internal Medicine Hematology & Oncology; ADMIT Family Medicine
PROC: 07DR3ZX Extraction of Iliac Bone Marrow, Percutaneous Approach, Diagnostic (ICD-10-PCS; principal; 2016-12-14)
DX: K85.90 Acute pancreatitis without necrosis or infection, unspecified (principal); J96.01 Acute respiratory failure with hypoxia; N17.9 Acute kidney failure, unspecified; E87.0 Hyperosmolality and hypernatremia; E83.52 Hypercalcemia; D63.8 Anemia in other chronic diseases classified elsewhere; E87.6 Hypokalemia; M06.9 Rheumatoid arthritis, unspecified; K21.9 Gastro-esophageal reflux disease without esophagitis; J32.9 Chronic sinusitis, unspecified; Z87.891 Personal history of nicotine dependence; J30.9 Allergic rhinitis, unspecified; E86.0 Dehydration; E87.70 Fluid overload, unspecified
CPT/HCPCS: J0696; J1940; J2270; J2405; J3480; J3489; J7030; J7040; J7050; J7060

== ENCOUNTER → 2016-12-07 | Outpatient (CLI) | payer MEDICARE, BC ==
[~2016-12-07] MED LIST: ALLEGRA-D 12 HR1 TAB PO; ARAVA10 MG PO; BIOTIN5000 MCG PO; ESTROVEN MAX400 MCG PO; FLONASE 50 MCG/16 GM NOSE; NEURONTIN300 MG PO; PROTONIX40 MG PO; SINGULAIR10 MG PO; TYLENOL EXTRA500 MG PO; VITAMIN D-32000 UNI1 PO
== END ==
LOC: GRAD 07:52
DX: R51 Headache (principal); R50.9 Fever, unspecified; J32.2 Chronic ethmoidal sinusitis; J34.2 Deviated nasal septum; J34.89 Other specified disorders of nose and nasal sinuses